=== PATIENT | female | born 1995 | race Caucasian/White ===

== ENCOUNTER 2018-06-02 20:53 | Emergency (ER) | payer BC ==
[2018-06-02] MEDS ORDERED: DEXAMETHASONE 10 MG/ML VIAL PO ONE (21:53)
[2018-06-02] MEDS ORDERED: AMOXICILLIN/CLAVULANATE POT 875/125 MG TAB PO ONE (21:53)
--- NOTE | 2018-06-02 22:05 | EDPHY ---
H & P Stated Complaint: difficulty swallowing, sore throat Time Seen by Provider: 06/02/18 21:51 HPI/ROS: CHIEF COMPLAINT: Sore throat times 24 hr HISTORY OF PRESENT ILLNESS: 23-year-old immunocompetent female complaining of 24 hr of sore throat, tonsillar enlargement, flu-like symptoms, tender cervical adenopathy. Denies: Abdominal pain, back pain, rash, chest pain, dyspnea. REVIEW OF SYSTEMS: 10 systems reviewed and negative with the exception of the elements mentioned in the history of present illness PAST MEDICAL & SURGICAL HISTORY: No pertinent medical or surgical history SOCIAL HISTORY: Student PHYSICAL EXAM (Prior to examination, patient consented to physical exam, hands were washed and my usual and customary physical exam procedures followed) 1) GENERAL: Well-developed, well-nourished, alert and oriented. Appears to be in no acute distress. 2) HEAD: Normocephalic, atraumatic 3) HEENT: Pupils equal, round, reactive to light bilaterally. Sclera anicteric. Oropharynx: Moist mucous membranes, bilateral tonsils are symmetrically enlarged with white exudate with no pointing of the uvula, no hot potato voice, no trismus no drooling. Ears bilaterally with normal tympanic membranes. 4) NECK: Full range of motion, no meningeal signs. No nuchal rigidity 5) LUNGS: Clear auscultation bilaterally, no wheezes, no rhonchi, no retractions. 6) HEART: Regular rate and rhythm, no murmur, no heave, no gallop. 7) ABDOMEN: No guarding, no rebound, no focal tenderness, negative McBurney's, negative Red's, negative Rovsing's, negative peritoneal sign, specifically no left upper quadrant pain, no splenomegaly 8) MUSCULOSKELETAL: Moving all extremities, no focal areas of tenderness, no obvious trauma. No peripheral edema or discoloration. 9) BACK: No CVA tenderness, no midline vertebral tenderness, no fluctuance, no step-off, no obvious trauma, no visual or palpable abnormality. 10) SKIN: No rash, no petechiae. 11) Psychiatric: Patient is oriented X 3, there is no agitation. DIFFERENTIAL DIAGNOSIS: In no particular order, my differential diagnosis includes, but is not limited to, strep pharyngitis, viral pharyngitis, peritonsillar abscess, retropharyngeal abscess or plegmon, mononucleosis, meningitis, Lemierre syndrome. - Personal History LMP (Females 10-55): 1-7 Days Ago Current Tetanus Diphtheria and Acellular Pertussis (TDAP): Yes - Medical/Surgical History Hx Asthma: Yes Hx Chronic Respiratory Disease: No Hx Diabetes: No Hx Cardiac Disease: No Hx Renal Disease: No Hx Cirrhosis: No Hx Alcoholism: No Hx HIV/AIDS: No Hx Splenectomy or Spleen Trauma: No Other PMH: anxiety, depression, ocd - Social History Smoking Status: Never smoked Constitutional: Initial Vital Signs Temperature (C) 37.0 C 06/02/18 20:56 Heart Rate 93 06/02/18 20:56 Respiratory Rate 16 06/02/18 20:56 Blood Pressure 121/90 H 06/02/18 20:56 O2 Sat (%) 97 06/02/18 20:56 O2 Delivery Mode Room Air Allergies/Adverse Reactions: No Known Allergies Allergy (Unverified 06/02/18 20:56) Home Medications: Medication Instructions Recorded Amoxicillin/Clavulanate Pot 875 mg PO BID #14 tab 06/02/18 [Augmentin 875 mg tab] Hydrocodone/APAP 5/325 [[place] 1 tab PO Q6 PRN #7 tab 06/02/18 5/325 (RX)] Lexapro 06/02/18 methylPREDNISolone [Medrol Dose 4 mg PO DAILY #1 ea 06/02/18 [place]] Medical Decision Making ED Course/Re-evaluation: Positive strep screening. At 10:29 p.m. the patient requested I speak with her father who is a surgeon in [place]. The patient provided verbal consent to disclose medical information. Doubt meningitis. Father agrees with plan of antibiotics, steroids. Doubt peritonsillar abscess or retropharyngeal phlegmon. Recommend treatment with antibiotics and steroids. Close return precautions provided. She feels comfortable being discharged. Patient feels comfortable being discharged. All questions and concerns addressed by myself. Patient given my usual and customary discharge precautions and instructions regarding their clinical impression. Care of patient under supervision of secondary supervising physician Dr John . - Data Points Laboratory Results: 06/02/18 21:25 Group A Strep Screen POSITIVE H (NEGATIVE) Medications Given: Discontinued Medications Amoxicillin/Clavulanate Potassium (Augmentin 875mg) 875 mg PO EDNOW ONE PRN Reason: Protocol Stop: 06/02/18 21:54 Last Admin: 06/02/18 22:03 Dose: 875 mg Dexamethasone (Decadron Injection) 10 mg PO EDNOW ONE Stop: 06/02/18 21:54 Last Admin: 06/02/18 22:03 Dose: 10 mg Departure - Departure Disposition: Home, Routine, Self-Care Clinical Impression: Acute streptococcal pharyngitis Condition: Good Instructions: Strep Throat (ED) Additional Instructions: Return to the ER immediately if you cannot swallow, have drooling, fevers, neck stiffness, cannot open your jaw, or any other symptoms that concern you. Referrals: Marcus Solitario MD [Medical Doctor] - 2-3 days, call for appt. Stand Alone Forms: School Excuse, Airline Excuse Prescriptions: Amoxicillin/Clavulanate Pot [Augmentin 875 mg tab] 875 mg PO BID #14 tab Hydrocodone/APAP 5/325 [[place] 5/325 (RX)] 1 tab PO Q6 PRN #7 tab PRN Reason: Pain, Severe methylPREDNISolone [Medrol Dose [place]] 4 mg PO DAILY #1 ea
[2018-06-02 22:46] VITALS: BP 119/25
== END 2018-06-02 22:45 | disposition home or self-care (01) ==
DX: J02.0 Streptococcal pharyngitis (principal)
CPT/HCPCS: J1100